=== PATIENT | male | born 1960 | race Caucasian/White ===

== ENCOUNTER 2020-09-04 06:56 | Emergency (ER) | payer BC ==
--- NOTE | 2020-09-04 07:45 | EDM.PDOC ---
ED HPI GENERAL MEDICAL PROBLEM - General Chief Complaint: General Stated Complaint: BODY PAIN Time Seen by Provider: 09/04/20 07:17 Source of Information: Reports: Patient History Limitations: Reports: No Limitations - History of Present Illness INITIAL COMMENTS - FREE TEXT/NARRATIVE: Patient is a 60-year-old male who presents today for the burning with urination. Patient states that when he gets to urinate he has intense burning and is painful. Patient denies seeing any blood or lesion. In between urination he does not have any discharge. Patient reports some lower abdominal pain. Patient denies any nausea vomiting fever chills or other complaints. bodyaches Pain Score (Numeric/FACES): 7 - Related Data Allergies Allergy/AdvReac Type Severity Reaction Status Date / Time No Known Allergies Allergy Verified 09/04/20 07:37 Home Meds: Home Meds . [No Known Home Meds] 09/04/20 [History] Past Medical History - Past Health History Medical/Surgical History: Denies Medical/Surgical History Oncologic (Cancer) History: Reports: Basal Cell Carcinoma Social & Family History - Caffeine Use Caffeine Use: Reports: None ED ROS GENERAL - Review of Systems Review Of Systems: See Below Constitutional: Reports: No Symptoms HEENT: Reports: No Symptoms Respiratory: Reports: No Symptoms Cardiovascular: Reports: No Symptoms Endocrine: Reports: No Symptoms GI/Abdominal: Reports: No Symptoms : Reports: Dysuria Musculoskeletal: Reports: No Symptoms Skin: Reports: No Symptoms Neurological: Reports: No Symptoms Psychiatric: Reports: No Symptoms Hematologic/Lymphatic: Reports: No Symptoms Immunologic: Reports: No Symptoms ED EXAM, GENERAL - Physical Exam Exam: See Below Exam Limited By: No Limitations General Appearance: Alert, WD/WN Respiratory/Chest: No Respiratory Distress, Lungs Clear Cardiovascular: Normal Peripheral Pulses, Regular Rate, Rhythm GI/Abdominal: Normal Bowel Sounds, Soft, Non-Tender, No Distention Extremities: Normal Inspection, Normal Range of Motion Neurological: Alert, Oriented, CN II-XII Intact #1 Interpretation EKG Date: 09/04/20 Time: 07:25 Rhythm: Other (sinus tach) Rate (Beats/Min): 115 Odell: Normal ST-T: Normal Course - Vital Signs Last Recorded V/S: Last Vital Signs Temp 98.2 F 09/04/20 07:09 Pulse 109 H 09/04/20 08:15 Resp 20 09/04/20 08:15 BP 162/85 H 09/04/20 08:15 Pulse Ox 95 09/04/20 08:15 - Orders/Labs/Meds Orders: Active Orders 24 hr Category Date Time Status EKG Documentation Completion [RC] STAT Care 09/04/20 07:39 Active CHLAMYDIA AND GONORRHEA BY [facility] Stat Lab 09/04/20 07:45 Received Labs: Laboratory Tests 09/04/20 09/04/20 09/04/20 Range/Units 07:23 07:23 07:23 WBC 17.15 H (4.0-11.0) K/uL RBC 5.56 (4.50-5.90) M/uL Hgb 16.6 (13.0-17.0) g/dL Hct 46.9 (38.0-50.0) % MCV 84.4 (80.0-98.0) fL MCH 29.9 (27.0-32.0) pg MCHC 35.4 (31.0-37.0) g/dL RDW Std Deviation 39.2 (28.0-62.0) fl RDW Coeff of Foz[place] 13 (11.0-15.0) % Plt Count 191 (150-400) K/uL MPV 9.90 (7.40-12.00) fL Neut % (Auto) 90.0 H (48.0-80.0) % Lymph % (Auto) 4.1 L (16.0-40.0) % [place] % (Auto) 5.8 (0.0-15.0) % Eos % (Auto) 0.0 (0.0-7.0) % Baso % (Auto) 0.1 (0.0-1.5) % Neut # (Auto) 15.5 H (1.4-5.7) K/uL Lymph # (Auto) 0.7 (0.6-2.4) K/uL [place] # (Auto) 1.0 H (0.0-0.8) K/uL Eos # (Auto) 0.0 (0.0-0.7) K/uL Baso # (Auto) 0.0 (0.0-0.1) K/uL Nucleated RBC % 0.0 /100WBC Nucleated RBCs # 0 K/uL Lactate 1.3 (0.20-2.00) mmol/L Sodium 139 (136-148) mmol/L Potassium 3.3 L (3.5-5.1) mmol/L Chloride 102 (98-107) mmol/L Carbon Dioxide 23.1 (21.0-32.0) mmol/L BUN 12 (7.0-18.0) mg/dL Creatinine 1.4 H (0.8-1.3) mg/dL Est Cr Clr Drug Dosing 61.26 mL/min Estimated GFR (MDRD) 52.1 ml/min Glucose 118 H (74-106) mg/dL Calcium 9.3 (8.5-10.1) mg/dL Total Bilirubin 1.3 H (0.2-1.0) mg/dL AST 21 (15-37) IU/L ALT 25 (14-63) IU/L Alkaline Phosphatase 88 (46-116) U/L Creatine Kinase 115 (26-308) U/L Total Protein 8.5 H (6.4-8.2) g/dL Albumin 4.3 (3.4-5.0) g/dL Globulin 4.2 H (2.6-4.0) g/dL Albumin/Globulin Ratio 1.0 (0.9-1.6) Lipase 148 (73-393) U/L Urine Color Urine Appearance Urine pH (5.0-8.0) Ur Specific [place] (1.001-1.035) Urine Protein (NEGATIVE) mg/dL Urine Glucose (UA) (NEGATIVE) mg/dL Urine Ketones (NEGATIVE) mg/dL Urine Occult Blood (NEGATIVE) Urine Nitrite (NEGATIVE) Urine Bilirubin (NEGATIVE) Urine Urobilinogen (<2.0) EU/dL Ur Leukocyte Esterase (NEGATIVE) Urine RBC (0-2/HPF) Urine WBC (0-5/HPF) Ur Epithelial Cells (NONE-FEW) Urine Bacteria (NEGATIVE) 09/04/20 Range/Units 08:08 WBC (4.0-11.0) K/uL RBC (4.50-5.90) M/uL Hgb (13.0-17.0) g/dL Hct (38.0-50.0) % MCV (80.0-98.0) fL MCH (27.0-32.0) pg MCHC (31.0-37.0) g/dL RDW Std Deviation (28.0-62.0) fl RDW Coeff of [place]oz[place] (11.0-15.0) % Plt Count (150-400) K/uL MPV (7.40-12.00) fL Neut % (Auto) (48.0-80.0) % Lymph % (Auto) (16.0-40.0) % [place] % (Auto) (0.0-15.0) % Eos % (Auto) (0.0-7.0) % Baso % (Auto) (0.0-1.5) % Neut # (Auto) (1.4-5.7) K/uL Lymph # (Auto) (0.6-2.4) K/uL [place] # (Auto) (0.0-0.8) K/uL Eos # (Auto) (0.0-0.7) K/uL Baso # (Auto) (0.0-0.1) K/uL Nucleated RBC % /100WBC Nucleated RBCs # K/uL Lactate (0.20-2.00) mmol/L Sodium (136-148) mmol/L Potassium (3.5-5.1) mmol/L Chloride (98-107) mmol/L Carbon Dioxide (21.0-32.0) mmol/L BUN (7.0-18.0) mg/dL Creatinine (0.8-1.3) mg/dL Est Cr Clr Drug Dosing mL/min Estimated GFR (MDRD) ml/min Glucose (74-106) mg/dL Calcium (8.5-10.1) mg/dL Total Bilirubin (0.2-1.0) mg/dL AST (15-37) IU/L ALT (14-63) IU/L Alkaline Phosphatase (46-116) U/L Creatine Kinase (26-308) U/L Total Protein (6.4-8.2) g/dL Albumin (3.4-5.0) g/dL Globulin (2.6-4.0) g/dL Albumin/Globulin Ratio (0.9-1.6) Lipase (73-393) U/L Urine Color YELLOW Urine Appearance CLEAR Urine pH 6.0 (5.0-8.0) Ur Specific [place] 1.010 (1.001-1.035) Urine Protein 30 H (NEGATIVE) mg/dL Urine Glucose (UA) NEGATIVE (NEGATIVE) mg/dL Urine Ketones NEGATIVE (NEGATIVE) mg/dL Urine Occult Blood LARGE H (NEGATIVE) Urine Nitrite POSITIVE H (NEGATIVE) Urine Bilirubin NEGATIVE (NEGATIVE) Urine Urobilinogen 0.2 (<2.0) EU/dL Ur Leukocyte Esterase SMALL H (NEGATIVE) Urine RBC 1-3 (0-2/HPF) Urine WBC 20-25 (0-5/HPF) Ur Epithelial Cells OCCASIONAL (NONE-FEW) Urine Bacteria 2+ H (NEGATIVE) Meds: Medications Discontinued Medications Generic Name Dose Route Start Last Admin Trade Name Freq PRN Reason Stop Dose Admin Ciprofloxacin 500 mg 09/04/20 09:22 09/04/20 10:09 Ciprofloxacin Hcl PO 09/04/20 09:23 500 mg ONETIME ONE Administration Sodium Chloride 1,000 mls @ 999 mls/hr 09/04/20 07:37 09/04/20 07:47 Normal Saline IV 09/04/20 08:37 999 mls/hr .BOLUS ONE Administration Iopamidol 100 ml 09/04/20 09:27 09/04/20 09:27 Isovue Multipack-370 (76%) IVPUSH 09/04/20 09:28 100 ml ONETIME ONE Administration - Re-Assessments/Exams Free Text/Narrative Re-Assessment/Exam: 09/04/20 10:43 Patient UA shows a positive UTI. Patient also possibly has proctitis. Will send patient home antibiotics. Patient states that he sexually active only with his and does not return about STDs. We will send patient home with ciprofloxacin for 28 days if his GC chlamydia comes back positive we will change antibiotics at that time. Departure - Departure Time of Disposition: 10:44 Disposition: Home, Self-Care 01 Condition: Good Clinical Impression: Prostatitis - Discharge Information *PRESCRIPTION DRUG MONITORING PROGRAM REVIEWED*: Not Applicable *COPY OF PRESCRIPTION DRUG MONITORING REPORT IN PATIENT HIPOLITO: Not Applicable Instructions: Prostatitis, [id number] Referrals: PCP,None [Primary Care Provider] - Forms: ED Department Discharge Additional Instructions: The following information is given to patients seen in the emergency department who are being discharged to home. This information is to outline your options for follow-up care. We provide all patients seen in our emergency department with a follow-up referral. The need for follow-up, as well as the timing and circumstances, are variable depending upon the specifics of your emergency department visit. If you don't have a primary care physician on staff, we will provide you with a referral. We always advise you to contact your personal physician following an emergency department visit to inform them of the circumstance of the visit and for follow-up with them and/or the need for any referrals to a consulting specialist. The emergency department will also refer you to a specialist when appropriate. This referral assures that you have the opportunity for follow-up care with a specialist. All of these measure are taken in an effort to provide you with optimal care, which includes your follow-up. Under all circumstances we always encourage you to contact your private physician who remains a resource for coordinating your care. When calling for follow-up care, please make the office aware that this follow-up is from your recent emergency room visit. If for any reason you are refused follow-up, please contact the [facility] Emergency Department at and asked to speak to the emergency department charge nurse. Please follow up with your primary care physician. If you do not have a primary care physician, see below: [facility] [address] [place] [id number] My [facility] [address] [place] [id number] Follow-up with your primary care physician. We prescribed antibiotics for 28 days we also sent some other tested dose, if positive we will call and change antibiotics in the meantime continue take antibiotics as prescribed if you have any increased pain fever chills please return to the ED Sepsis Event Note (ED) - Evaluation Sepsis Screening Result: No Definite Risk - Focused Exam Vital Signs: Vital Signs Temp Pulse Resp BP Pulse Ox 09/04/20 08:15 109 H 20 162/85 H 95 09/04/20 07:09 98.2 F 130 H 20 152/97 H 95 - My Orders Last 24 Hours: My Active Orders 09/04/20 07:39 EKG Documentation Completion [RC] STAT 09/04/20 07:45 CHLAMYDIA AND GONORRHEA BY [facility] Stat - Assessment/Plan Last 24 Hours: My Active Orders 09/04/20 07:39 EKG Documentation Completion [RC] STAT 09/04/20 07:45 CHLAMYDIA AND GONORRHEA BY [facility] Stat Assessment:: Patient is a 60-year-old male who presents today for burning with urination. Patient is sexually active but only with his . Will obtain UA UC chlamydia labs and reassess.
[2020-09-04] MEDS: Sodium Chloride 0.9% 1,000 ML IV ONE (07:47)
[2020-09-04 07:58] LABS: CARBON DIOXIDE,CO2 23.1 mmol/L (21.0-32.0); POTASSIUM,K 3.3 mmol/L (3.5-5.1)
[2020-09-04] MEDS: Iopamidol 755 MG/ML 500 ML Multipack Bottle IVPUSH ONE (09:27)
[2020-09-04] MEDS: Ciprofloxacin 500 MG Tab PO ONE (10:09)
--- NOTE | 2020-09-04 10:27 | CT ---
INDICATION: One-day history of flank pain and urinary retention. TECHNIQUE: Volumetric helical scanning of the abdomen and pelvis was performed with 100 cc of Isovue 370 contrast material IV. Coronal and sagittal reconstructions were obtained. COMPARISON: None. FINDINGS: No urinary tract stone is evident. The kidneys are unremarkable except for a few right renal cysts. The prostate is moderately enlarged. The seminal vesicles are also enlarged, right greater than left. Bladder mild generalized bladder wall thickening is demonstrated. Fatty change is demonstrated in the liver along with a 1.5 cm cyst. The liver is normal in size and shape. No bile duct dilation is evident. The spleen, adrenal glands and pancreas are unremarkable. No lymphadenopathy or free fluid is evident. The bowel is unremarkable except for sigmoid diverticulosis. The lung bases are clear and the heart size is normal. A nonspecific 5 x 5 x 2.5 cm mass with several calcifications is demonstrated in the subcutaneous fat of the anterolateral lower left chest wall. IMPRESSION: 1. Moderate prostate enlargement and mild generalized bladder wall thickening. No hydroureter or hydronephrosis. 2. Seminal vesicle enlargement bilaterally, right greater than left. 3. Several right renal cysts. 4. Fatty liver and 1.5 cm liver cyst. 5. Nonspecific 5 x 5 x 2.5 cm mass in subcutaneous fat of the anterolateral lower left chest. Please note that all CT scans at this facility use dose modulation, iterative reconstruction, and/or weight-based dosing when appropriate to reduce radiation dose to as low as reasonably achievable. Dictated by Alo Dave MD @ Sep 04 2020 10:19AM Signed by Dr. Alo Dave @ Sep 04 2020 10:25AM
[2020-09-07 12:02] LABS: C.TRACHOMATIS BY TMA Negative (Negative); N.GONORRHOEAE BY TMA Negative (Negative)
== END 2020-09-04 10:45 | disposition home or self-care (01) ==
LOC: MW.ED 06:56
DX: N41.9 Inflammatory disease of prostate, unspecified (principal); R00.0 Tachycardia, unspecified
CPT/HCPCS: 36415; 74177; 80053; 81001; 82550; 83605; 83690; 85025; 87491; 87591; 93005; 99284; A9270; J7030; Q9967; 93010; 99283